=== PATIENT | female | born 1950 | race Caucasian/White ===

== ENCOUNTER → 2016-09-02 | Outpatient (CLI) | payer OTHER | LOC: BRMIMAGING 14:03 | PROVIDERS: ATTEND Internal Medicine | DX: Z13.820 Encounter for screening for osteoporosis (principal); Z78.0 Asymptomatic menopausal state ==

== ENCOUNTER → 2017-03-05 | Outpatient (CLI) | payer OTHER | LOC: FIMAGING 13:26 | PROVIDERS: ATTEND Internal Medicine | DX: Z12.31 Encounter for screening mammogram for malignant neoplasm of breast (principal) | CPT/HCPCS: G0202 ==

== ENCOUNTER 2018-01-04 05:14 | Day surgery (SDC) | payer OTHER ==
--- NOTE | 2017-12-07 13:53 | GHP ---
DATE OF ADMISSION: 01/04/2018 ADMITTING DIAGNOSIS: Thickened endometrial lining. HISTORY OF PRESENT ILLNESS: Patient is a 67-year-old 3, para 3, who presents from her PCP's office for evaluation and treatment of persistent endometrial thickening at 1.5 cm on ultrasound 2014 and 2015. The patient did have an endometrial biopsy done under local and Cytotec in February of 2015 that was negative for hyperplasia or malignancy. She states age of menopause at 48 years of age. Denies any postmenopausal bleeding or spotting since then. Denies any pain or cramping as well. The patient states she had this ultrasound done as a screening tool. Patient has not been on hormone replacement therapy currently or in the past. A repeat ultrasound in our office reveals a retroverted uterus measuring 6 x 3 x 5 cm with endometrial stripe, again 1.5 cm, heterogeneous with multiple cysts and/or calcifications, questionable large polyp 3 x 3 cm; ovaries, normal bilaterally; no free fluid. Patient wants to know if she should continue to observe with yearly sonograms or have surgery done. PAST OB HISTORY: Patient has a history of uncomplicated spontaneous vaginal delivery in 1977, in and a spontaneous in 1980. PAST KILN LOADER HISTORY: Age of menarche 12. Menopause at the age of 48. Patient denies history of abnormal Pap smears or any exposure to sexually transmitted diseases. CURRENT MEDICATIONS: Zyrtec, multivitamins including vitamin C, D3 and samuel B, Baby aspirin, and Atorvastatin. ALLERGIES: Penicillin. PAST MEDICAL HISTORY: Remarkable for hyperlipidemia, and basal cell skin cancer. PAST SURGICAL HISTORY: Tonsillectomy in 1966, right knee arthroscopy in 2005, and left knee arthroscopy in 2010. FAMILY HISTORY: Sister with thyroid disease. Mother with hypertension. Father had lung cancer and at 58 years of age. Brother with testicular cancer. SOCIAL HISTORY: Patient is and lives with her . She is retired. Denies any alcohol, tobacco, or illicit drug use. REVIEW OF SYSTEMS: 10-point review of systems is negative. Pertinent positives noted in HPI. LABORATORIES: None. STUDIES: As above. ASSESSMENT/PLAN: Patient is a 67-year-old, G3, P3, with persistent endometrial thickening at 1.5 cm. 1. Discussed with the patient that without postmenopausal bleeding, endometrial thickness greater than 11 mm should be biopsied since cancer risk is 6 to 7%. The patient had a negative endometrial biopsy 02/2015. Discussed treatment options with continued observation since she is asymptomatic versus a D and C, hysteroscopy with removal of polyp if seen. Patient desires surgery at this time for definitive diagnosis and removal of polyps. 2. Discussed the procedure, diagnostic/operative hysteroscopy with removal of polyps and dilatation and curettage, its limitations, n.p.o. status, and postop recovery. 3. Surgical consents were signed. Discussed risks, benefits, alternatives of the procedure including but not limited to, bleeding, infection, and risk of uterine perforation. 4. The patient understands all risks of the procedure, and wants to proceed with surgery at this time. 5. Antibiotics client professional; will given clindamycin since penicillin allergy. 6. Sequential compression devices for deep venous thrombosis prophylaxis. /[id number]/MODL MTDD
[2018-01-04] MEDS ORDERED: CLINDAMYCIN 900 MG/DEXTROSE 50 ML IV ONE (05:47)
[2018-01-04] MEDS ORDERED: LR 1,000 ML IV ONE (05:48)
[2018-01-04] MEDS ORDERED: SILVER NITRATE APPLICATOR 1 APPL TP ONE (06:23)
[2018-01-04] MEDS ORDERED: MIDAZOLAM 2 MG/2 ML VIAL IVP ONE (07:11)
--- NOTE | 2018-01-04 07:14 | PDANEPAE ---
ANE History of Present Illness Hysterectomy D and C ANE Past Medical History - Cardiovascular History Hx Hypertension: No Hx Arrhythmias: No Hx Chest Pain: No Hx Coronary Artery / Peripheral Vascular Disease: No Hx CHF / Valvular Disease: No Hx Palpitations: No - Pulmonary History Hx COPD: No Hx Asthma/Reactive Airway Disease: No Hx Recent Upper Respiratory Infection: No Hx Oxygen in Use at Home: No Hx Sleep Apnea: No Sleep Apnea Screening Result - Last Documented: Negative Pulmonary History Comment: PULM NODULE - Neurologic History Hx Cerebrovascular Accident: No Hx Seizures: No Hx Dementia: No - Endocrine History Hx Diabetes: No Endocrine History Comment: THYROID NODULE - Renal History Hx Renal Disorders: No - Liver History Hx Hepatic Disorders: No - Neurological & Psychiatric Hx Hx Neurological and Psychiatric Disorders: No - Cancer History Hx Cancer: Yes Cancer History Comment: SKIN - Congenital Disorder History Hx Congenital Disorders: No - GI History Hx Gastrointestinal Disorders: No - Other Health History Other Health History: UTERINE POLYP. SEASONAL ALLERGIES - Chronic Pain History Chronic Pain: No - Surgical History Prior Surgeries: TONSILLECTOMY. VIKAS KNEE SCOPES ANE Review of Systems Review of systems is: negative Review of Systems: - Exercise capacity METS (RN): 4 METS ANE Patient History - Allergies Allergies/Adverse Reactions: Penicillins Allergy (Verified 12/04/17 10:52) ORAL NUMBNESS - Home Medications Home medications: home medication list seen and reviewed Home Medications: Advil PRN 12/04/17 [Last Taken 12/28/17] Aspirin 81mg (*) HS 12/04/17 [Last Taken 12/28/17] Herbals/Supplements -Info Only DAILY 12/04/17 [Last Taken 01/03/18] ZYRTEC DAILY 12/04/17 [Last Taken 01/04/18] - NPO status NPO Status: no food or drink >8 hours NPO Since - Liquids (Date): 01/04/18 NPO Since - Liquids (Time): 04:00 NPO Since - Solids (Date): 01/03/18 NPO Since - Solids (Time): 19:00 - Anes Hx Anes Hx: no prior problems - Smoking Hx Smoking Status: Former smoker - Family Anes Hx Family Hx Anesthesia Complications: NEG ANE Labs/Vital Signs - Vital Signs Blood Pressure: 127/88 Heart Rate: 75 Respiratory Rate: 16 O2 Sat (%): 97 Height: 165.1 cm Weight: 78.471 kg ANE Physical Exam - Airway Neck exam: FROM Mallampati Score: Class 1 Mouth exam: normal dental/mouth exam - Pulmonary Pulmonary: no respiratory distress, no rales or rhonchi - Cardiovascular Cardiovascular: regular rate and rhythym, no murmur, rub, or gallop ANE Anesthesia Plan Anesthesia Plan: GA w LMA
--- NOTE | 2018-01-04 07:20 | PDHPUP ---
History & Physical Update H&P update statement: This history and physical update is based on an assessment of the patient which was completed after admission or registration (within 24 hours), but prior to the surgery/procedure. H&P update: H&P reviewed & patient examined, no change in patient's condition since H&P completed
[2018-01-04] MEDS ORDERED: PROPOFOL/EMULSION 500 MG/50 ML BOTTLE IV ONE (07:28)
[2018-01-04] MEDS ORDERED: PROPOFOL 200 MG/20 ML VIAL ONE (07:28)
[2018-01-04] MEDS ORDERED: fentaNYL 100 MCG/2 ML INJ ONE ×2 (07:28)
[2018-01-04] MEDS ORDERED: GLYCOPYRROLATE 0.2 MG/1 ML VIAL ONE (08:05)
[2018-01-04] MEDS ORDERED: ONDANSETRON 4 MG/2 ML VIAL ONE (08:42)
[2018-01-04] MEDS ORDERED: KETOROLAC 30 MG/1 ML SDV ONE (08:42)
[2018-01-04] MEDS ORDERED: ePHEDrine SULFATE 25 MG/5 ML SYR ONE (08:42)
[2018-01-04] MEDS ORDERED: DEXAMETHASONE 4 MG/ML VIAL ONE (08:42)
--- NOTE | 2018-01-04 08:44 | POSTOPPROG ---
Post Op Note Date of Operation: 01/04/18 Surgeon: Jessica Castillo Senior Case Manager: None Anesthesiologist: Dr. Malik Anesthesia: IV Sedation, LMA Pre-op Diagnosis: Thickened endometrial lining Post-op Diagnosis: Thickened endometrial lining; Cervical stenosis; Endometrial polyp Indication: 67 y/o w/ persistent endometrial thickening @ 1.5 cm x 3 yrs; EMBx neg Procedure: Diagnostic hysteroscopy with morcellaton of polyp; D&C Findings: Cervical stenosis; Ut cavity with large polyp noted and no prolif. tissue Inf/Abcess present in the surg proc area at time of surgery?: No Depth: Organ Space EBL: Minimal (2 cc) Total fluids administered: 450 cc LR Deficit for hysteroscopy 2150 cc - no s /s uterine perforation Complications: None Specimen(s): Endometrial curettings; polyp
[2018-01-04] MEDS ORDERED: ONDANSETRON 4 MG/2 ML VIAL IVP PRN (08:54)
[2018-01-04] MEDS ORDERED: fentaNYL 100 MCG/2 ML INJ IVP PRN (08:54)
[2018-01-04] MEDS ORDERED: NALOXONE HCL 0.4 MG/ML INJ IVP PRN (08:54)
[2018-01-04 10:23] VITALS: BP 100/94
--- NOTE | 2018-01-04 10:33 | POSTANESTH ---
Post Anesthetic Evaluation Cardiovascular Status: Normal, Stable Respiratory Status: Normal, Stable Level of Consciousness/Mental Status: Can Participate in Eval Pain Control: Adequate, Prn Tx Ordered Nausea/Vomiting Control: Adequate, Prn Tx Ordered Complications Possibly Related to Anesthesia: None Noted
--- NOTE | 2018-01-04 14:26 | GOP ---
DATE OF OPERATION: SURGEON: Jessica Castillo DO SOCIAL WORKER PALLIATIVE CARE: None. ANESTHESIA: IV sedation, LMA. ANESTHESIOLOGIST: Eloisa Malik MD. PREOPERATIVE DIAGNOSIS: Thickened endometrial lining. POSTOPERATIVE DIAGNOSIS: 1. Thickened endometrial lining. 2. Cervical stenosis. 3. Endometrial polyp. PROCEDURE PERFORMED: Operative hysteroscopy, polypectomy with morcellator, and dilation and curettage. FINDINGS: Cervical stenosis was noted. The cervix was dilated starting with a 0.5 Hegar. The uterine cavity was seen in its entirety with visualization of bilateral ostia. Minimal proliferative tissue was noted. However, there was a large endometrial polyp noted that extended through the endocervical canal. No other masses or abnormalities were noted during hysteroscopy. SPECIMENS: Pathologic specimen will be endometrial tissue, and endometrial curettings. ESTIMATED BLOOD LOSS: 2 cc. INDICATIONS: Patient is a 67-year-old, G3, P3, with persistent endometrial thickening at 1.5 cm since 2014. The patient did present from her PCP's office for evaluation and treatment. She had a negative endometrial biopsy in 2016. Pelvic ultrasound done in our office revealed an endometrial thickening at 1.5 cm. The patient is asymptomatic at this time. She denies any postmenopausal bleeding and has been menopausal for the last 20 years now. The patient wants to proceed with hysteroscopy and sampling to get a definitive diagnosis to rule out cancer. We discussed the procedure, its limitations, as well as the risks, benefits, alternatives, including, but not limited to, bleeding, infection, damage to surrounding organs, and risk of uterine perforation. Patient understands all risks at this time and wants to proceed with surgery. DESCRIPTION OF PROCEDURE: Patient was taken to the operating room where anesthesia was obtained without difficulty. She was prepped and draped in the dorsal lithotomy position. Bladder had been previously drained before surgery. An open-sided speculum was then placed in the vagina and an Allis clamp was used to grasp the anterior lip of the cervix. The cervix was unable to be sounded secondary to cervical stenosis. So, at this time, the cervix was progressively dilated with Hegar dilators starting with #0.5 up to a #6. The uterine sound was then able to be passed up into the uterus and she sounded to 8 cm. The hysteroscope was then gently advanced from the cervix to the top of the fundus. Visualization occurred and the uterine cavity was distended using normal saline. Minimal proliferative tissue was noted. There was a large endometrial polyp noted from the endometrial cavity extending down to the endocervical canal. Bilateral ostia were visualized. At this time, the polyp blade morcellator was gently advanced in the cervix up to the fundus. A window lock was performed. A polypectomy was then performed. At this time, there was noted to be an increased fluid deficit near 2 L, so the procedure was abandoned. However, there were no signs and symptoms of uterine perforation and no perforation was seen on hysteroscopic exam. The patient's vital signs remained stable throughout the procedure. The hysteroscope was then removed. We then turned our attention to a curettage. A sharp curette was then advanced to the uterus, and 4 quadrants of the uterine cavity was curetted with minimal tissue noted. This tissue was sent to Pathology. All instruments were then removed from the vagina. There was no bleeding noted from the cervix. Patient tolerated the procedure well. Sponge, lap, needle, instrument counts correct x2. A BMP was drawn that revealed a postoperative sodium at 141. The patient was then taken out of dorsal lithotomy position, awakened, and sent to recovery room in stable condition. IV FLUIDS: 450 cc LR. HYSTEROSCOPIC FLUID DEFICIT: 2150 cc; suspect inaccurate. URINE OUTPUT: Patient emptied bladder prior to the procedure. /[id number]/MODL MTDD
== END 2018-01-04 10:24 | disposition home or self-care (01) ==
LOC: FSGY 05:14
PROVIDERS: ATTEND Obstetrics & Gynecology
DX: R93.89 Abnormal findings on diagnostic imaging of other specified body structures (principal); N88.2 Stricture and stenosis of cervix uteri; N84.0 Polyp of corpus uteri
CPT/HCPCS: 58558; C1782; J1100; J1885; J2250; J2405; J2704; J3010

== ENCOUNTER → 2018-03-10 | Outpatient (CLI) | payer OTHER | LOC: FIMAGING 10:44 | PROVIDERS: ATTEND Internal Medicine | DX: Z12.31 Encounter for screening mammogram for malignant neoplasm of breast (principal) ==